=== PATIENT | female | born 1990 | race African-American/Black ===

== ENCOUNTER 2021-03-13 10:32 | Inpatient (IN) | payer OTHER ==
[2021-03-13] MEDS ORDERED: DEXTROSE 5%-LACTATED RINGERS 1,000 ML IV SCH (11:30)
[2021-03-13 12:13] VITALS: BMI 30.6
[2021-03-13] MEDS ORDERED: AMPICILLIN SODIUM 2 GM VIAL ONE (12:16)
[2021-03-13 12:37] LABS: BASO % 0.3 % (0-2.0); EOS % 0.1 % (0-4.5); HEMATOCRIT 34.7 % (32.4-45.2); HEMOGLOBIN 11.1 GM/dL (10.7-15.3); LYMPH % 8.4 % (8-40); MCH 23.1 pg (25.7-33.7); MEAN CELL VOLUME 72.3 fl (80-96); MEAN PLT VOLUME 7.6 fl (7.5-11.1); MONO % 5.1 % (3.8-10.2); NEUT % 86.1 % (42.8-82.8); PLATELET COUNT 303 10^3/uL (134-434); RBC 4.79 M/mm3 (3.60-5.2); RDW 19.2 % (11.6-15.6); WHITE BLOOD COUNT 12.2 K/mm3 (4.0-10.0)
[2021-03-13 12:51] LABS: INR 1.01 (0.83-1.09); PROTHROMBIN TIME (PATIENT) 12.4 SEC (9.7-13.0)
[2021-03-13 13:00] LABS: BLOOD UREA NITROGEN 6.4 mg/dL (7-18); CALCIUM 9.1 mg/dL (8.5-10.1)
[2021-03-13 13:04] LABS: CREATININE 0.5 mg/dL (0.55-1.3)
[2021-03-13] MEDS ORDERED: OXYTOCIN 20 UNITS in 0.9% NS 20 UNIT/1,000 ML INFUS.BAG IV ONE ×2 (13:20→16:24)
[2021-03-13] MEDS: OXYTOCIN 20 UNITS in 0.9% NS 20 UNIT/1,000 ML INFUS.BAG IV SCH ×2 (14:26→16:00)
[2021-03-13] MEDS ORDERED: BENZOCAINE 20% 57 GM BOTTLE TP PRN (15:13)
[2021-03-13] MEDS ORDERED: WITCH HAZEL 50% (TUCKS) 40 PAD/JAR PAD TP PRN (15:13)
[2021-03-13] MEDS ORDERED: BENZOCAINE 28 GM HEMORRHOIDAL OINTMENT TP PRN (15:13)
[2021-03-13] MEDS ORDERED: ACETAMINOPHEN 325 MG TABLET (FP) ONE (15:22)
[2021-03-13] MEDS: ACETAMINOPHEN 325 MG TABLET (FP) PO PRN ×2 (15:25→20:24)
[2021-03-13] MEDS ORDERED: IBUPROFEN 600 MG TABLET (FP) PO ONE (15:26)
[2021-03-13] MEDS ORDERED: IBUPROFEN 600 MG TABLET (FP) PO PRN (18:12)
[2021-03-13] MEDS: IBUPROFEN 600 MG TABLET (FP) PO PRN (20:23)
[2021-03-14] MEDS: ACETAMINOPHEN 325 MG TABLET (FP) PO PRN ×3 (03:01→17:41)
[2021-03-14] MEDS: IBUPROFEN 600 MG TABLET (FP) PO PRN ×3 (03:01→17:41)
[2021-03-14] MEDS ORDERED: DIPHTH,PERTUSS(ACELL),TET 0.5 ML DISP.SYRIN IM ONE (10:00)
[2021-03-14 10:39] LABS: BASO % 0.3 % (0-2.0); EOS % 0.4 % (0-4.5); HEMOGLOBIN 9.8 GM/dL (10.7-15.3); LYMPH % 15.9 % (8-40); MCH 22.9 pg (25.7-33.7); MCHC 31.5 g/dl (32.0-36.0); MEAN CELL VOLUME 72.8 fl (80-96); MEAN PLT VOLUME 7.6 fl (7.5-11.1); MONO % 9.2 % (3.8-10.2); NEUT % 74.2 % (42.8-82.8); PLATELET COUNT 253 10^3/uL (134-434); RBC 4.26 M/mm3 (3.60-5.2); RDW 19.9 % (11.6-15.6); WHITE BLOOD COUNT 11.4 K/mm3 (4.0-10.0)
[2021-03-14] MEDS ORDERED: ACETAMINOPHEN/CAFFEINE/BUTALBITAL 1 TAB PO PRN (18:20)
[2021-03-15 10:25] VITALS: BP 121/81; PULSE 78; TEMP 97.9
== END 2021-03-15 14:40 | disposition home or self-care (01) | DRG 560 ==
LOC: JDEL 10:32 → JLDR 11:05 → J3W 17:21
PROVIDERS: ADMIT Obstetrics & Gynecology Maternal & Fetal Medicine; ATTEND Obstetrics & Gynecology Maternal & Fetal Medicine
PROC: 10E0XZZ Delivery of Products of Conception, External Approach (ICD-10-PCS; principal; 2021-03-13)
PROC: 10907ZC Drainage of Amniotic Fluid, Therapeutic from Products of Conception, Via Natural or Artificial Opening (ICD-10-PCS; 2021-03-13)
DX: O80 Encounter for full-term uncomplicated delivery (principal); Z3A.39 39 weeks gestation of pregnancy; Z37.0 Single live birth; O90.89 Other complications of the puerperium, not elsewhere classified; G43.009 Migraine without aura, not intractable, without status migrainosus
CPT/HCPCS: 36415; 59409; 80048; 85025; 85610; 85730; 86780; 86850; 86900; 86901; C9803; U0003; U0005